=== PATIENT | female | born 1990 | race American Indian/Alaskan Native ===

== ENCOUNTER 2016-05-28 06:57 | Inpatient (IN) | payer BC ==
[2016-05-28 07:54] LABS: Basophils % (Auto) 0.3 % (0.0-1.8); Eosinophils % (Auto) 0.1 % (0.0-4.3); Hematocrit 35.3 % (30.3-42.9); Hemoglobin 11.1 gm/dl (10.1-14.3); Mean Corpuscular HGB Conc 32 % (30-34); Mean Corpuscular Volume 75 fl (79-97); Platelet Count 347 K/mm3 (140-440); Red Cell Distribution Width 18.7 % (13.2-15.2); White Blood Count 7.5 K/mm3 (4.5-11.0)
[2016-05-28 07:57] LABS: Mean Corpuscular Hemoglobin 24 pg (28-32)
[2016-05-28 08:05] LABS: Bacteria,Urine 1+ /HPF (Negative); Bilirubin,Urine NEG (Negative); Blood,Urine NEG (Negative); Ketones,Urine 80 mg/dL (Negative); Leukocyte Esterase,Urine MOD (Negative); Mucus,Urine 3+ /HPF; Nitrite,Urine NEG (Negative)
[2016-05-28 08:13] LABS: Alanine Aminotransferase 168 units/L (7-56); Albumin 4.4 g/dL (3.9-5); Albumin/Globulin Ratio 1.1 %; Alkaline Phosphatase 77 units/L (35-129); Anion Gap 20 mmol/L; Bilirubin,Total 1.1 mg/dL (0.1-1.2); Blood Urea Nitrogen 4 mg/dL (7-17); Calcium 9.5 mg/dL (8.4-10.2); Carbon Dioxide 27 mmol/L (22-30); Chloride 91.3 mmol/L (98-107); Glucose 95 mg/dL (65-100); Lipase 69 units/L (13-60); Sodium 135 mmol/L (137-145); Total Protein 8.3 g/dL (6.3-8.2)
[2016-05-28] MEDS ORDERED: NACL 0.9% 1000 ML 1,000 ML IV ONE ×2 (11:47)
[2016-05-28] MEDS ORDERED: ZOFRAN IV ONE ×2 (11:47→15:16)
[2016-05-28] MEDS ORDERED: ROCEPHIN/NS 1 GM/50 ML 1 GM/50 ML BAG IV ONE (11:48)
--- NOTE | 2016-05-28 12:01 | Emergency Department Report ---
HPI - General Chief Complaint: Abdominal Pain Time Seen by Provider: 05/28/16 11:39 - HPI HPI: Room 4 The patient is a 25-year-old female presenting with a chief complaint of nausea vomiting abdominal pain. The patient is approximately 9 weeks states for 2-3 weeks his left lower quadrant abdominal pain nausea and vomiting. The patient states she feels "dehydrated." The patient states she has been unable to keep anything down despite being given Zofran by her PUBLIC SPEAKING COACH 1 week ago. Patient also complains of pain in the left back approximately 2-3 weeks. The patient denies dysuria or hematuria. States her urine has been dark Location: [see above] Duration: 2-3 weeks Quality: Nausea Severity: Moderate Modifying factors: [see above] Context: [see above] Mode of transportation: [not driving] ED Past Medical Hx - Past Medical History Previous Medical History?: No - Surgical History Past Surgical History?: No - Family History Family history: no significant - Social History Smoking Status: Never Smoker Substance Use Type: None - Medications Home Medications: Home Medications Medication Instructions Recorded Confirmed Last Taken Type Nitrofurantoin [place]/M-Cryst 100 mg PO Q12HR #20 capsule 05/28/16 Unknown Rx [Macrobid CAP] Ondansetron [Zofran ODT TAB] 8 mg PO Q8HR #20 tab.rapdis 05/28/16 Unknown Rx ED Review of Systems ROS: Stated complaint: NAUSEA/DEHYDRATED Other details as noted in HPI Comment: All other systems reviewed and negative Physical Exam - Physical Exam Vital Signs: Vital Signs 05/28/16 07:21 Temperature 98.3 F Pulse Rate 88 Respiratory 16 Rate Blood Pressure 113/69 O2 Sat by Pulse 99 Oximetry ED Course Vital Signs 05/28/16 07:21 Temperature 98.3 F Pulse Rate 88 Respiratory 16 Rate Blood Pressure 113/69 O2 Sat by Pulse 99 Oximetry - Consultations Consultation #1: 05/28/16 12:02 Patient's PUBLIC SPEAKING COACH paged- case discussed with Dr. Gena Chavez. States this does not represent HELLP syndrome as the patient is less than 20 weeks. Recommends consulting GI 05/28/16 12:06 Consultation #2: 05/28/16 13:41 Duck Farmer paged- case discussed with Dr. Jr Chavez. No intervention necessary at this time. May have patient follow-up in the office 05/28/16 13:57 ED Medical Decision Making - Lab Data Result diagrams: 05/28/16 07:37 05/28/16 07:37 Laboratory Tests 05/28/16 05/28/16 05/28/16 07:37 07:37 07:37 WBC 7.5 RBC 4.70 Hgb 11.1 Hct 35.3 MCV 75 L MCH 24 L MCHC 32 RDW 18.7 H Plt Count 347 Lymph % (Auto) 15.5 [place] % (Auto) 8.3 H Eos % (Auto) 0.1 Baso % (Auto) 0.3 Lymph # 1.2 [place] # 0.6 Eos # 0.0 Baso # 0.0 Seg Neutrophils % 75.8 H Seg Neutrophils # 5.7 Sodium Potassium Chloride Carbon Dioxide Anion Gap BUN Creatinine Estimated GFR BUN/Creatinine Ratio Glucose Calcium Total Bilirubin AST ALT Alkaline Phosphatase Total Protein Albumin Albumin/Globulin Ratio Lipase HCG, Qual Positive Urine Color Ira Urine Turbidity Cloudy Urine pH 5.0 Ur Specific [place] 1.028 Urine Protein 100 mg/dl Urine Glucose (UA) Neg Urine Ketones 80 Urine Blood Neg Urine Nitrite Neg Urine Bilirubin Neg Urine Urobilinogen 4.0 Ur Leukocyte Esterase Mod Urine WBC (Auto) 56.0 H Urine RBC (Auto) 13.0 U Epithel Cells (Auto) 33.0 H Urine Bacteria (Auto) 1+ Ur Transition Epith Cell 1 Urine Mucus 3+ 05/28/16 07:37 WBC RBC Hgb Hct MCV MCH MCHC RDW Plt Count Lymph % (Auto) [place] % (Auto) Eos % (Auto) Baso % (Auto) Lymph # [place] # Eos # Baso # Seg Neutrophils % Seg Neutrophils # Sodium 135 L Potassium 3.0 L Chloride 91.3 L Carbon Dioxide 27 Anion Gap 20 BUN 4 L Creatinine 0.8 Estimated GFR > 60 BUN/Creatinine Ratio 5.00 Glucose 95 Calcium 9.5 Total Bilirubin 1.1 AST 73 H ALT 168 H Alkaline Phosphatase 77 Total Protein 8.3 H Albumin 4.4 Albumin/Globulin Ratio 1.1 Lipase 69 H HCG, Qual Urine Color Urine Turbidity Urine pH Ur Specific [place] Urine Protein Urine Glucose (UA) Urine Ketones Urine Blood Urine Nitrite Urine Bilirubin Urine Urobilinogen Ur Leukocyte Esterase Urine WBC (Auto) Urine RBC (Auto) U Epithel Cells (Auto) Urine Bacteria (Auto) Ur Transition Epith Cell Urine Mucus - Radiology Data Radiology results: report reviewed (pelvic ultrasound, right upper quadrant ultrasound), image reviewed (pelvic ultrasound, right upper quadrant ultrasound) Pelvic ultrasound (read by radiologist)-single viable intrauterine gestation. Complex cyst in the right and left ovary. Right upper quadrant ultrasound (read by radiologist)-sludge with single calculus noted within the gallbladder. Common bile duct diameter 3.5 mm. Gallbladder wall thickness 2.7 mm. Normal liver. - Differential Diagnosis HELLP syndrome, symptomatic cholelithiasis, hyperemesis gravidarum Critical care attestation.: If time is entered above; I have spent that time in minutes in the direct care of this critically ill patient, excluding procedure time. ED Disposition Clinical Impression: Hyperemesis gravidarum, UTI (urinary tract infection), Elevated LFTs, Cholelithiasis Disposition: DISCHARGED TO HOME OR SELFCARE Is pt being admited?: No Does the pt Need Aspirin: No Condition: Stable Instructions: Abdominal Pain (ED) Additional Instructions: Return to the emergency department immediately should you develop worsening symptoms, fever, inability to tolerate food or liquid or any other concerns. Prescriptions: Nitrofurantoin [place]/M-Cryst [Macrobid CAP] 100 mg PO Q12HR #20 capsule Ondansetron [Zofran ODT TAB] 8 mg PO Q8HR #20 tab.rapdis Referrals: MONICA SCHMITT MD [Staff Physician] - 3-[address] Gena Chavez, your PUBLIC SPEAKING COACH [Other] - 3-5 Days Time of Disposition: 15:23
--- NOTE | 2016-05-28 13:16 | Ultrasound Report ---
Pelvic and transvaginal sonography: History: Lower abdominal pain. Findings: Uterus measures 10.1 x 7 x 7.2 cm. Single intrauterine gestation is noted. CRL of the fetus is 17.5 mm corresponding to 8 weeks and 2 days of gestation. heart rate 160 per minute. Right ovary 3.2 x 2.2 x 2.4 cm. Complex cyst in the right ovary measures 1.1 cm. Left ovary 3.5 x 2.2 x 2.8 cm. Complex cyst in the left ovary measures 1 cm. Impression: Single viable intrauterine gestation. Complex cyst in the right and left ovary.
--- NOTE | 2016-05-28 13:19 | Ultrasound Report ---
Sonogram right upper quadrant: History: Nausea and vomiting. Findings: Aortic diameter 1.2 cm. Normal liver. No intrahepatic or extrahepatic duct dilatation. Common bile duct diameter 3.5 mm. Gallbladder wall thickness 2.7 mm. Sludge is noted within the gallbladder with single calculus measuring 1 cm in diameter. Right kidney 8.8 x 4.3 x 5 cm. Cortical thickness 1.0 cm. Normal pancreas. Impression: Sludge with single calculus noted within the gallbladder.
[2016-05-28] MEDS ORDERED: K-DUR PO ONE (13:43)
--- NOTE | 2016-05-28 13:51 | Admit Criteria Form ---
Admission Criteria Documentation: HYPEREMESIS GRAVIDARUM Clinical Indications for Admission to Inpatient Care ( Place 'X' for any and all applicable criteria): Admission is indicated for ANY ONE of the following (1)(2)(3) [ ]I. Suspected serious gastrointestinal pathology (eg, acute fatty liver of , pancreatitis) as indicated by ANY ONE of the following (5)(6): [ ]a) Significantly elevated serum transaminase or bilirubin (eg, 2 or 3 times normal) [ ]b) Elevated serum amylase or lipase [ ]c) Elevated serum ammonia level [ ]d) Coagulopathy (eg, elevated PT, PTT) [ ]e) Ascites [ ]f) Encephalopathy [X ]II. Inpatient admission required rather than observation care (Also use Hyperemesis Gravidarum: Observation Care as appropriate) because of ANY ONE of the following (7) : [ ]a) Hemodynamic instability develops [X ]b) Vomiting that is severe or persistent [ ]c) Severe electrolyte abnormalities requiring inpatient care [ ]d) Metabolic disorder (eg, acidosis) that is severe or persistent [ ]e) Acute renal failure [ ]f) Altered mental status or medication side effects (eg, antiemetics) that are severe or persistent [ ]g) compromise identified [ ]h) Hydatidiform mole identified [ ]i) IV fluid to replace significant ongoing (eg, for over 24 hrs) losses (> 3 L/m2 per day) [ ]j) Parenteral nutrition regimen that must be implemented on inpatient basis [ ]k) Other condition, treatment or monitoring requiring inpatient admission Extended stay beyond goal length of stay may be needed for(2)(13): [ ]a) Severe electrolyte disorder that persists [ ]b) Severe malnutrition [ ]c) Acute fatty liver of [ ]d) Hydatidiform mole [ ]e) Wernicke encephalopathy or other [employer] complication (eg, osmotic demyelination syndrome) [ ]f) compromise The original [employer] content created by [employer] has been revised. The portions of the content which have been revised are identified through the use of italic text or in bold, and [facility] has neither reviewed nor approved the modified material. All other unmodified content is copyright [facility]. Please see references footnoted in the original [facility] edition 2016 Admission Criteria Met: Yes
[2016-05-28] MEDS ORDERED: PHENERGAN PR ONE (16:00)
[2016-05-28] MEDS ORDERED: REGLAN IV ONE (17:53)
[2016-05-28] MEDS ORDERED: REGLAN ONE (19:28)
[2016-05-28] MEDS: D5LR 1,000 ML IV SCH (21:59)
[2016-05-28] MEDS: PHENERGAN PR SCH (23:31)
[2016-05-29] MEDS: REGLAN IV SCH ×4 (02:40→22:30)
[2016-05-29] MEDS: PHENERGAN PR SCH ×4 (05:42→21:00)
[2016-05-29] MEDS: D5LR 1,000 ML IV SCH ×2 (05:42→12:16)
--- NOTE | 2016-05-29 13:17 | History and Physical Report ---
History of Present Illness Date of examination: 05/29/16 Date of admission: 05/28/16 17:54 Chief complaint: Nausea and vomiting History of present illness: This is a 25 yo at 8+ weeks was seen in clinic several weeks ago for NOB visit. She reports labs and US performed and stated that she was given ranitidine and zofran for nausea and vomiting. She reports vomiting since Apr 6x per day and losing 16 pounds. She has no medical history but vaguely remembers thyroid condition ( hyperthyroidism) that has not been treated in the past. She has no other sx. denies s any cramping, wasserman, reports some spotting at last appt with FROY Khanna. Denies any bleeding nor spotting today. Past History Past Medical History: thyroid disease (questionable ) Past Surgical History: no surgical history Family/Genetic History: diabetes, heart disease, hypertension, stroke Social history: no significant social history, single. denies: smoking, alcohol abuse, prescription drug abuse Medications and Allergies Allergies Allergy/AdvReac Type Severity Reaction Status Date / Time No Known Allergies Allergy Unverified 05/28/16 07:20 Home Medications Medication Instructions Recorded Confirmed Last Taken Type Nitrofurantoin [place]/M-Cryst 100 mg PO Q12HR #20 capsule 05/28/16 Unknown Rx [Macrobid CAP] Ondansetron [Zofran ODT TAB] 8 mg PO Q8HR #20 tab.rapdis 05/28/16 Unknown Rx Active Meds: Active Medications Dextrose/Lactated Ringer's (D5lr) 1,000 mls @ 150 mls/hr IV DIRECT JESSICA Last Admin: 05/29/16 12:16 Dose: 150 mls/hr Metoclopramide HCl (Reglan) 10 mg IV Q6H JSESICA Last Admin: 05/29/16 08:15 Dose: 10 mg Multivitamins/Iron/Calcium ( Vitamin) 1 each PO QDAY JESSICA Ondansetron HCl (Zofran) 4 mg IV Q6H PRN PRN Reason: N/V unrelieved by Reglan Promethazine HCl (Phenergan) 25 mg WA Q6H JESSICA Last Admin: 05/29/16 12:15 Dose: 25 mg Review of Systems Constitutional: weight loss (16 pounds) Eyes: deferred Ears, nose, mouth and throat: deferred Breasts: deferred Gastrointestinal: nausea, vomiting, no abdominal pain, no diarrhea, no constipation Genitourinary: deferred Rectal Exam: deferred Integumentary: deferred - Vital Signs Vital signs: Vital Signs Temp Pulse Resp BP Pulse Ox 98.3 F 88 16 113/69 99 05/28/16 07:21 05/28/16 07:21 05/28/16 07:21 05/28/16 07:21 05/28/16 07:21 Temp Pulse Resp BP Pulse Ox 98.5 F 70 18 84/50 100 05/29/16 12:05 05/29/16 12:05 05/29/16 12:05 05/29/16 12:05 05/28/16 20:00 - Physical Exam Breasts: Positive: normal Cardiovascular: Regular rate, Normal S1, Normal S2 Lungs: Positive: Clear to auscultation, Normal air movement Abdomen: Positive: normal appearance, soft, normal bowel sounds. Negative: distention, tenderness Genitourinary (Female): Positive: normal external genitalia, normal perenium Vulva: both: normal Vagina: Positive: normal moisture Uterus: Positive: enlarged Anus/Rectum: Positive: normal perianal skin, heme negative Extremities: Positive: normal Deep Tendon Reflex Grade: Normal +2 Results Result Diagrams: 05/28/16 07:37 05/28/16 07:37 All other labs normal. Assessment and Plan A/P HD#1 IUP 8 weeks hyperememsis gravidarum elevated liver enzymes cholelethiasis hyperkalemia increase hydration antiemetics ( scopolamine, reglan, zofran and solumedrol) replace K in D5 LR with 30 K hepatiits profile labs TSh profile GI consult discussed case and discussed elevated liver enzymes may be due to sludge or passing stone will see patietn tomorrow. recommneded hydration repeat cmp tonight and tomorrow
[2016-05-29] MEDS: ZOFRAN IV PRN (13:39)
[2016-05-29] MEDS ORDERED: D5W/0.45% NACL/KCL 20 MEQ 20 MEQ/1,000 ML BAG IV SCH (14:00)
[2016-05-29 16:11] LABS: Alanine Aminotransferase 90 units/L (7-56); Albumin 3.3 g/dL (3.9-5); Albumin/Globulin Ratio 1.4 %; Alkaline Phosphatase 51 units/L (35-129); Anion Gap 15 mmol/L; Bilirubin,Total 0.4 mg/dL (0.1-1.2); Blood Urea Nitrogen 2 mg/dL (7-17); Carbon Dioxide 24 mmol/L (22-30); Chloride 103.2 mmol/L (98-107); Glucose 114 mg/dL (65-100); Sodium 139 mmol/L (137-145); Total Protein 5.6 g/dL (6.3-8.2)
[2016-05-29 16:16] LABS: Potassium 2.9 mmol/L (3.6-5.0)
[2016-05-29] MEDS ORDERED: KCL 20MEQ/100ML 100 ML IV ONE (16:28)
[2016-05-29] MEDS: TRANSDERM-SCOP TD SCH (17:28)
[2016-05-29] MEDS ORDERED: KCL 10MEQ/100ML 10 MEQ/100 ML BAG IV SCH (18:00)
[2016-05-30] MEDS: PHENERGAN PR SCH ×3 (03:00→21:49)
[2016-05-30] MEDS: D5LR 1,000 ML IV SCH ×3 (03:30→18:14)
[2016-05-30] MEDS: REGLAN IV SCH ×4 (03:30→21:49)
--- NOTE | 2016-05-30 05:18 | Progress Note ---
Assessment and Plan O: IUP at 9 weeks hyperememsis gravidarum elevated liver enzymes cholelethiasis hypokalemia P: milly't Subjective - Subjective Date of service: 05/30/16 Patient reports: new complaints, other (n/v continues, unable to tolerate anything by mouth) Objective - Vital Signs Vital Signs: Vital Signs - 12hr 05/29/16 05/29/16 05/30/16 20:50 23:40 03:50 Temperature 99.3 F 98.9 F 98.7 F Pulse Rate [ 74 64 79 Right Radial] Respiratory 18 18 18 Rate Blood Pressure 100/56 86/50 111/67 [Right Arm] - Exam Breasts: deferred Abdomen: Present: normal appearance - Labs Labs: Abnormal Labs 05/29/16 05/29/16 13:38 13:39 Potassium 2.9 L* BUN 2 L Creatinine 0.5 L Glucose 114 H Calcium 8.0 L D ALT 90 H Total Protein 5.6 L D Albumin 3.3 L TSH 0.047 L Free T4 1.63 H Laboratory Results - last 24 hr 05/29/16 05/29/16 05/29/16 13:38 13:39 Unknown Sodium 139 Potassium 2.9 L* Chloride 103.2 Carbon Dioxide 24 Anion Gap 15 BUN 2 L Creatinine 0.5 L Estimated GFR > 60 BUN/Creatinine Ratio 4.00 Glucose 114 H Calcium 8.0 L D Total Bilirubin 0.4 AST 31 ALT 90 H Alkaline Phosphatase 51 Total Protein 5.6 L D Albumin 3.3 L Albumin/Globulin Ratio 1.4 TSH 0.047 L Free T4 1.63 H Urine Ketones Tr Hepatitis A IgM Ab Non-reactive Hep Bs Antigen Non-reactive Hep B Core IgM Ab Non-reactive Hepatitis C Antibody Non-reactive
--- NOTE | 2016-05-30 17:42 | Consultation ---
History of Present Illness - Reason for Consult Consult date: 05/30/16 N/V Requesting physician: MELY CHAVEZ - History of Present Illness See Dictation Past History Social history: no significant social history, single. denies: smoking, alcohol abuse, prescription drug abuse Medications and Allergies Allergies Allergy/AdvReac Type Severity Reaction Status Date / Time No Known Allergies Allergy Unverified 05/28/16 07:20 Home Medications Medication Instructions Recorded Confirmed Last Taken Type Nitrofurantoin [place]/M-Cryst 100 mg PO Q12HR #20 capsule 05/28/16 Unknown Rx [Macrobid CAP] Ondansetron [Zofran ODT TAB] 8 mg PO Q8HR #20 tab.rapdis 05/28/16 Unknown Rx Active Meds: Active Medications Dextrose/Lactated Ringer's (D5lr) 1,000 mls @ 150 mls/hr IV DIRECT JESSICA Last Admin: 05/30/16 10:18 Dose: 150 mls/hr Methylprednisolone Sodium Succinate (Solu-Medrol) 100 mg IV Q8H JESSICA Stop: 05/30/16 18:01 Last Admin: 05/30/16 11:57 Dose: 100 mg Metoclopramide HCl (Reglan) 10 mg IV Q6H JESSICA Last Admin: 05/30/16 16:25 Dose: 10 mg Multivitamins/Iron/Calcium ( Vitamin) 1 each PO QDAY JESSICA Ondansetron HCl (Zofran) 4 mg IV Q6H PRN PRN Reason: N/V unrelieved by Reglan Last Admin: 05/29/16 13:39 Dose: 4 mg Promethazine HCl (Phenergan) 25 mg SC Q6H JESSICA Last Admin: 05/30/16 10:01 Dose: Not Given Scopolamine (Transderm-Scop) 1 each TD Q3D JESSICA Last Admin: 05/29/16 17:28 Dose: 1 each Exam - Constitutional Vitals: Temp Pulse Resp BP Pulse Ox 98.8 F 70 18 100/54 100 05/30/16 16:38 05/30/16 16:38 05/30/16 16:38 05/30/16 16:38 05/28/16 20:00 Results - Labs CBC & Chem 7: 05/28/16 07:37 05/30/16 07:45 Assessment and Plan 1. N/V - with RUQ tenderness, and elevated LFTs that are improving, in pt in 9th wk of . Most c/w symptomatic cholelithiasis, and possible stone passage in CBD. - discussed with pt and Dr. Chavez - PICC line and cyclic TPN - MRCP in 2nd trimester, and then CCX +/- ERCP - if worsens, may need to act sooner.
[2016-05-30] MEDS ORDERED: INFUVITE 10 ML in D5LR 1,000 ML IV ONE (19:00)
[2016-05-30] MEDS: ZOFRAN IV PRN (19:39)
[2016-05-31 00:39] LABS: Alanine Aminotransferase 88 units/L (7-56); Albumin 3.3 g/dL (3.9-5); Albumin/Globulin Ratio 1.2 %; Alkaline Phosphatase 53 units/L (35-129); Anion Gap 17 mmol/L; Bilirubin,Total 0.5 mg/dL (0.1-1.2); Blood Urea Nitrogen < 1 mg/dL (7-17); Calcium 8.6 mg/dL (8.4-10.2); Carbon Dioxide 22 mmol/L (22-30); Chloride 100.3 mmol/L (98-107); Glucose 179 mg/dL (65-100); Potassium 3.4 mmol/L (3.6-5.0); Sodium 136 mmol/L (137-145); Total Protein 6.1 g/dL (6.3-8.2)
[2016-05-31] MEDS: ZOFRAN IV PRN (01:08)
--- NOTE | 2016-05-31 01:47 | Consultation ---
REASON FOR CONSULTATION: Nausea, vomiting, and abnormal liver enzymes. 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 She has been having problems with intermittent nausea and vomiting since early April and has lost 16 pounds as a result. She notes that her nausea is chronic, but it is worse with p.o. intake. She has mild abdominal discomfort at times, though is in her lower abdomen. She denies GERD symptoms and there has been no hematemesis, hematochezia, or diarrhea. There have been no fevers, chills, or sweats. The patient denies jaundice. She has no known history of liver disease and denies ethanol usage. During the patient's first , she did have nausea, but no vomiting. She was never hospitalized for this. ALLERGIES: She has no known drug allergies. MEDICATIONS: At home, she only takes Zofran and Macrobid. PAST MEDICAL AND SURGICAL HISTORY: She has no significant past medical or surgical history. FAMILY AND SOCIAL HISTORY: Noncontributory and she does not smoke or drink. REVIEW OF SYSTEMS: Noncontributory except as noted above. PHYSICAL EXAMINATION: GENERAL: This is a pleasant young black female lying in bed in no apparent distress. VITAL SIGNS: Temperature is 98.8, pulse 70, blood pressure 100/54. HEENT: She is anicteric with pupils that are round and reactive. Oropharynx is clear. LUNGS: Clear bilaterally to auscultation. CARDIOVASCULAR: Regular with no extra heart sounds. ABDOMEN: Soft with good bowel sounds and no organomegaly. She has mild tenderness especially in the right upper quadrant. RECTAL: Deferred. EXTREMITIES: Reveal no edema. NEUROLOGIC: She is alert, oriented x 3. Grossly nonfocal. LABORATORY DATA: White count is 7.5, hemoglobin 11.1, hematocrit 35.3, MCV of 75, platelet count of 347,000. Sodium 139, potassium is up to 3.6, chloride 103, bicarbonate 24, BUN 2, creatinine 0.5, glucose of 114. On admission, her AST was 72 with ALT of 168, alkaline phosphatase 77, and a total bilirubin of 1.11. One day later on 05/29/2016, the AST was 31, ALT 90, alkaline phosphatase 51, total bilirubin of 0.4, and her albumin is 3.3. Her TSH is low at 0.047 with a free T4 of 1.63. Her hepatitis serologies are negative for acute hepatitis. Gallbladder ultrasound was reported as showing stones in the gallbladder and sludge with a normal sized common bile duct of 3 mm. IMPRESSION: Nausea/vomiting -- associated with elevated liver enzymes that have improved. Findings are worrisome for symptomatic cholelithiasis. Elevated liver enzymes may represent passage of sludge or stones down the bile duct, but there is no dilation. However, other possibilities are certainly to be considered including liver diseases associated with , which I do not think is the case. The nausea and vomiting are not what I would expect with hyperemesis gravidarum, given that her first was relatively uneventful. An ERCP or cholecystectomy would not be appropriate in the first trimester. We could do an MRCP but unless we were going to do anything useful with that information during this trimester, I would wait until the next trimester when it would be safer to proceed with surgery for gallbladder or an ERCP. The situation was discussed with the patient and her boyfriend as well as with Dr. Gena Chavez. RECOMMENDATIONS: 1. Monitor liver enzymes. 2. PICC line and cyclic TPN for nutritional support through the first trimester. 3. In the second trimester, when appropriate, proceed with MRCP or with a laparoscopic cholecystectomy and intraoperative cholangiogram. 4. If the patient worsens in the interim, appropriate management based on clinical course. [facility]# [id number] HRC/NTS
[2016-05-31] MEDS: PHENERGAN PR SCH ×3 (04:09→21:00)
[2016-05-31] MEDS: REGLAN IV SCH ×3 (04:09→20:48)
[2016-05-31] MEDS: D5LR 1,000 ML IV SCH ×2 (06:20→12:27)
--- NOTE | 2016-05-31 08:23 | Progress Note ---
Assessment and Plan A: IUP at 8 wks Persistent nausea/vomiting with evidence of symptomatic cholelithiasis No solid oral intake in more than one month P: Consult for PICC line and TPN. Case management consult for outpatient TPN, IV antiemetics. Subjective - Subjective Date of service: 05/31/16 Principal diagnosis: Nausea/Vomiting, Symptomatic Cholilthiasis, IUP at 8 wks Interval history: Pt with no nausea or vomiting since 8 pm but also with nothing by mouth since that time. Pt has been offered Phenergan suppositories but she felt her abdominal pain and nausea were worse with that medication. No vaginal bleeding or other obstetric complaints. GI consult completed yesterday. Patient reports: other (n/v continues, unable to tolerate anything other than water and tea ), no new complaints, no vaginal bleeding Objective - Vital Signs Vital Signs: Vital Signs - 12hr 05/30/16 05/31/16 23:15 04:15 Temperature 98.6 F 98.5 F Pulse Rate [ 53 L 71 Right Radial] Respiratory 20 18 Rate Blood Pressure 98/53 107/57 [Right Arm] - Exam Breasts: deferred Cardiovascular: Regular rate Lungs: Clear to auscultation Abdomen: Present: soft, tenderness (RUQ ), abnormal bowel sounds (hypoactive ) Extremities: normal - Labs Labs: Abnormal Labs 05/29/16 05/29/16 05/31/16 13:38 13:39 00:18 Sodium 136 L Potassium 2.9 L* 3.4 L BUN 2 L < 1 L Creatinine 0.5 L 0.4 L Glucose 114 H 179 H Calcium 8.0 L D ALT 90 H 88 H Total Protein 5.6 L D 6.1 L Albumin 3.3 L 3.3 L TSH 0.047 L Free T4 1.63 H Laboratory Results - last 24 hr 05/30/16 05/31/16 07:45 00:18 Sodium 136 L Potassium 3.6 D 3.4 L Chloride 100.3 Carbon Dioxide 22 Anion Gap 17 BUN < 1 L Creatinine 0.4 L Estimated GFR > 60 BUN/Creatinine Ratio 2.50 Glucose 179 H Calcium 8.6 Total Bilirubin 0.5 AST 38 ALT 88 H Alkaline Phosphatase 53 Total Protein 6.1 L Albumin 3.3 L Albumin/Globulin Ratio 1.2 - Results US- obstetric: report reviewed
[2016-05-31 10:31] LABS: Phosphorous 2.2 mg/dL (2.5-4.5)
--- NOTE | 2016-05-31 14:36 | XRay Report ---
AP CHEST: HISTORY: chest pain AP view of the chest demonstrates a normal mediastinal and cardiac contour with clear lungs and normal bony and soft tissue structures. A right arm PICC line terminates in the distal SVC. IMPRESSION: Unremarkable AP chest.
--- NOTE | 2016-05-31 14:45 | Gastroenterology Progress Note ---
Assessment and Plan 25yo woman 8 wks gestation with likely symptomatic cholelithiasis. Rec: 1) Agree w/ initiation of home TPN 2) Would not pursue cholecystectomy or MRCP at this time 3) Can reconsider in 2nd trimester No further inpatient GI w/u planned. Please re-call with questions. Thank you! Subjective Date of service: 05/31/16 Principal diagnosis: Nausea/Vomiting, Symptomatic Cholilthiasis, IUP at 8 wks Interval history: Pt seen/examined. States that she is feeling a little better today. S/P PICC placement for home TPN. Objective - Constitutional Vitals: Temp Pulse Resp BP Pulse Ox 98.4 F 47 L 20 98/53 100 05/31/16 07:35 05/31/16 07:35 05/31/16 07:35 05/31/16 07:35 05/28/16 20:00 General appearance: no acute distress - Neck Neck: supple - Respiratory Respiratory: bilateral: CTA - Cardiovascular Rhythm: regular Heart Sounds: Present: S1 & S2 - Extremities Extremities: No edema - Gastrointestinal General gastrointestinal: Present: soft, tender (in RUQ), non-distended, normal bowel sounds - Integumentary Integumentary: Present: clear - Neurologic Neurological: alert and oriented x3 - Psychiatric Psychiatric: appropriate mood/affect - Labs CBC & Chem 7: 05/28/16 07:37 05/31/16 00:18 Labs: Laboratory Results - last 24 hr 05/31/16 05/31/16 00:18 09:50 Sodium 136 L Potassium 3.4 L Chloride 100.3 Carbon Dioxide 22 Anion Gap 17 BUN < 1 L Creatinine 0.4 L Estimated GFR > 60 BUN/Creatinine Ratio 2.50 Glucose 179 H Calcium 8.6 Phosphorus 2.2 L Magnesium 2.0 Total Bilirubin 0.5 AST 38 ALT 88 H Alkaline Phosphatase 53 Total Protein 6.1 L Albumin 3.3 L Albumin/Globulin Ratio 1.2
[2016-05-31] MEDS ORDERED: TPN ADULT 2,016 ML IV SCH (20:00)
[2016-06-01] MEDS: PHENERGAN PR SCH ×3 (03:00→16:00)
[2016-06-01] MEDS: REGLAN IV SCH ×3 (05:36→16:50)
[2016-06-01 08:37] LABS: Anion Gap 14 mmol/L; Blood Urea Nitrogen 5 mg/dL (7-17); Calcium 8.2 mg/dL (8.4-10.2); Carbon Dioxide 25 mmol/L (22-30); Chloride 100.4 mmol/L (98-107); Glucose 89 mg/dL (65-100); Magnesium 1.8 mg/dL (1.7-2.3); Phosphorous 3.4 mg/dL (2.5-4.5); Potassium 3.3 mmol/L (3.6-5.0); Sodium 136 mmol/L (137-145)
--- NOTE | 2016-06-01 08:45 | Progress Note ---
Assessment and Plan - Patient Problems (1) Cholelithiasis Current Visit: Yes Status: Acute Qualifiers: Cholelithiasis location: C Cholecystitis presence: C Cholangitis presence : C Cholecystitis acuity: C Cholangitis acuity: C Biliary obstruction: B (2) Hyperemesis gravidarum Current Visit: Yes Status: Acute Plan to address problem: Patient demonstrating clinical improvement Will arrange for her TPN on outpatient basis Subjective - Subjective Date of service: 06/01/16 Principal diagnosis: Nausea/Vomiting, Symptomatic Cholilthiasis, IUP at 8 wks Interval history: The patient reports significant improvement. She denies any emesis yesterday or today. She is currently receiving TPN. Patient reports: no new complaints, no vaginal bleeding Objective - Vital Signs Vital Signs: Vital Signs - 12hr 06/01/16 00:00 Temperature 98.6 F Pulse Rate [ 62 Right Radial] Respiratory 18 Rate Blood Pressure 98/56 [Right Arm] - Exam Abdomen: Present: normal appearance, soft - Labs Labs: Abnormal Labs 05/29/16 05/29/16 05/31/16 13:38 13:39 00:18 Sodium 136 L Potassium 2.9 L* 3.4 L BUN 2 L < 1 L Creatinine 0.5 L 0.4 L Glucose 114 H 179 H Calcium 8.0 L D Phosphorus ALT 90 H 88 H Total Protein 5.6 L D 6.1 L Albumin 3.3 L 3.3 L TSH 0.047 L Free T4 1.63 H 05/31/16 06/01/16 09:50 07:59 Sodium 136 L Potassium 3.3 L BUN 5 L Creatinine 0.4 L Glucose Calcium 8.2 L Phosphorus 2.2 L ALT Total Protein Albumin TSH Free T4 Laboratory Results - last 24 hr 05/31/16 06/01/16 06/01/16 09:50 05:39 07:59 Sodium 136 L Potassium 3.3 L Chloride 100.4 Carbon Dioxide 25 Anion Gap 14 BUN 5 L Creatinine 0.4 L Estimated GFR > 60 BUN/Creatinine Ratio 12.50 Glucose 89 POC Glucose 89 Calcium 8.2 L Phosphorus 2.2 L Magnesium 2.0 1.8
[2016-06-01] MEDS: PRENATAL VITAMIN PO SCH (10:00)
[2016-06-01] MEDS: TRANSDERM-SCOP TD SCH (16:50)
[2016-06-01] MEDS: INTRALIPID 20% 250 ML IV SCH ×2 (19:57→20:08)
[2016-06-01] MEDS ORDERED: TPN ADULT 2,016 ML IV SCH (20:00)
[2016-06-02] MEDS: REGLAN IV SCH ×4 (03:42→16:30)
[2016-06-02] MEDS: PHENERGAN PR SCH ×3 (03:42→16:00)
[2016-06-02 07:44] LABS: Anion Gap 14 mmol/L; Blood Urea Nitrogen 6 mg/dL (7-17); Calcium 8.1 mg/dL (8.4-10.2); Carbon Dioxide 24 mmol/L (22-30); Chloride 101.6 mmol/L (98-107); Glucose 81 mg/dL (65-100); Magnesium 1.9 mg/dL (1.7-2.3); Phosphorous 3.1 mg/dL (2.5-4.5); Potassium 3.7 mmol/L (3.6-5.0); Sodium 136 mmol/L (137-145)
--- NOTE | 2016-06-02 08:36 | Progress Note ---
Assessment and Plan HD#5 n/v cholethiasis. 1. advance to bland diet 2. contact case mgt to assist in arrangement of picu service and tpn at home 3. coordinate f/u with GI 4. advance diet today 5. may be candidate for discharge today if all above performed 6. patient wants to go home Subjective - Subjective Date of service: 06/02/16 Principal diagnosis: Nausea/Vomiting, Symptomatic Cholilthiasis, IUP at 8 wks Interval history: This is a 25 yo at 8+ weeks was seen in clinic several weeks ago for NOB visit. She reports labs and US performed and stated that she was given ranitidine and zofran for nausea and vomiting. She reports vomiting since Apr 6x per day and losing 16 pounds. She has no medical history but vaguely remembers thyroid condition ( hyperthyroidism) that has not been treated in the past. She has no other sx. denies s any cramping, wasserman, reports some spotting at last appt with FROY Khanna. Denies any bleeding nor spotting today. Today HD#5 tolerating diet clear will advance to bland. Patient reports no vomiting yesterday. was able to sneak and tolerate a lunchable. Ketones neg Patient reports: no new complaints, no vaginal bleeding Objective - Vital Signs Vital Signs: Vital Signs - 12hr 06/01/16 06/02/16 23:00 04:20 Temperature 98.4 F 98.6 F Pulse Rate [ 76 62 Left Radial] Respiratory 20 18 Rate Blood Pressure 102/60 106/53 [Left Arm] - Exam Breasts: normal Cardiovascular: Regular rate, Normal S1, Normal S2 Lungs: Clear to auscultation, Normal air movement Abdomen: Present: normal appearance, soft, normal bowel sounds Vulva: both: normal Uterus: Present: normal FHR: auscultation normal - Labs Labs: Abnormal Labs 05/29/16 05/29/16 05/31/16 13:38 13:39 00:18 Sodium 136 L Potassium 2.9 L* 3.4 L BUN 2 L < 1 L Creatinine 0.5 L 0.4 L Glucose 114 H 179 H Calcium 8.0 L D Phosphorus ALT 90 H 88 H Total Protein 5.6 L D 6.1 L Albumin 3.3 L 3.3 L TSH 0.047 L Free T4 1.63 H 05/31/16 06/01/16 06/02/16 09:50 07:59 07:10 Sodium 136 L 136 L Potassium 3.3 L BUN 5 L 6 L Creatinine 0.4 L 0.4 L Glucose Calcium 8.2 L 8.1 L Phosphorus 2.2 L ALT Total Protein Albumin TSH Free T4 Laboratory Results - last 24 hr 06/01/16 06/01/16 06/01/16 07:59 10:19 16:11 Sodium 136 L Potassium 3.3 L Chloride 100.4 Carbon Dioxide 25 Anion Gap 14 BUN 5 L Creatinine 0.4 L Estimated GFR > 60 BUN/Creatinine Ratio 12.50 Glucose 89 POC Glucose 90 101 Calcium 8.2 L Phosphorus 3.4 D Magnesium 1.8 06/02/16 06/02/16 07:10 07:33 Sodium 136 L Potassium 3.7 Chloride 101.6 Carbon Dioxide 24 Anion Gap 14 BUN 6 L Creatinine 0.4 L Estimated GFR > 60 BUN/Creatinine Ratio 15.00 Glucose 81 POC Glucose 98 Calcium 8.1 L Phosphorus 3.1 Magnesium 1.9
[2016-06-02] MEDS: PRENATAL VITAMIN PO SCH (10:07)
--- NOTE | 2016-06-02 13:31 | Discharge Summary ---
Providers - Providers Date of Admission: 05/28/16 17:54 Date of discharge: 06/02/16 Attending physician: GENA CHAVEZ MD 05/28/16 21:00 Consult to Dietitian/Nutrition [CONS] Routine Physician Instructions: Reason For Exam: Reason for Consult: hyper grav Reason for Consult: 8 wks hyperemesis 05/29/16 13:24 Consult to Physician [CONS] Urgent Consulting Provider: GENA CHAVEZ Reason For Exam: nausea and vomiting Place consult to:: gastro Notified:: answering service 05/31/16 08:29 PICC Line Insertion [Consult to PICC Line RN] [CONS] Routine Reason For Exam: Persistent N/V, No solid intake x 1 month Type Line:: PICC 05/31/16 08:30 Consult to Dietitian/Nutrition [CONS] Routine Physician Instructions: Reason For Exam: Reason for Consult: Eval for TPN, no food x 1 mon, N/V 06/01/16 09:52 Consult to Case Management [CONS] Stat Services Needed at Discharge: Home Health Services Other Notified:: Willa Phone number called:: [phone] Was contact made?: Yes Time called:: 09:53 Additional Physician Instructions: Please arrange for patient to have home TPN @ discharge. 06/02/16 08:37 Consult to Case Management [CONS] Urgent Services Needed at Discharge: [facility] Notified:: case mgt Was contact made?: Yes Additional Physician Instructions: please let me know when patient can be discharged with picu and tpn at home. may be candidate to leave today pending set up Dr. Gena Chavez Primary care physician: [employer] Hospitalization Reason for admission: other (Nausea and vomiting ) Discharge diagnosis: other (cholethiasis, hyperemesis gravidarum, ) Condition at discharge: Good Disposition: DISCHARGED TO HOME OR SELFCARE Plan - Discharge Medications Prescriptions: Metoclopramide [Reglan] 10 mg PO TID #30 tab Nitrofurantoin [place]/M-Cryst [Macrobid CAP] 100 mg PO Q12HR #20 capsule Ondansetron [Zofran ODT TAB] 8 mg PO Q8HR #20 tab.rapdis Vit-Fe Fumar-FA [ Vitamin] 1 tab PO QDAY #60 tablet Promethazine [Phenergan TAB] 25 mg PO Q6HR PRN #30 tab PRN Reason: Nausea Scopolamine [Transderm-Scop] 1 each TD Q3D #10 patch - Provider Discharge Summary Activity: routine Diet: other (as instructed) Instructions: routine Additional instructions: [] Smoking cessation referral if applicable(refer to patient education folder for contact #) [] Refer to [facility] Booklet Call your doctor immediately for: * Fever > 100.5 * Heavy vaginal bleeding ( >1 pad per hour) * Severe persistent headache * Shortness of breath * Reddened, hot, painful area to leg or breast * Drainage or odor from incision. * Keep incision clean and dry at all times and follow doctor's instructions regarding bathing/showering - Follow up plan Follow up: Dr. Gena Chavez, your [facility] [Other] - 3-5 Days MONICA SCHMITT MD [Staff Physician] - 3-5 Days
[2016-06-02 13:54] VITALS: BP 105/64
== END 2016-06-02 17:13 | disposition home or self-care (01) | DRG 781 ==
LOC: ED 06:57 → OB 17:54
PROVIDERS: ADMIT Obstetrics & Gynecology; ATTEND Obstetrics & Gynecology
PROC: 02HV33Z Insertion of Infusion Device into Superior Vena Cava, Percutaneous Approach (ICD-10-PCS; principal; 2016-05-31)
DX: O21.1 Hyperemesis gravidarum with metabolic disturbance (principal); O99.611 Diseases of the digestive system complicating pregnancy, first trimester; K80.20 Calculus of gallbladder without cholecystitis without obstruction; Z3A.08 8 weeks gestation of pregnancy; Z83.3 Family history of diabetes mellitus; Z82.49 Family history of ischemic heart disease and other diseases of the circulatory system; Z82.3 Family history of stroke
CPT/HCPCS: 36415; 71010; 76705; 76801; 76817; 80048; 80053; 80074; 81001; 82010; 82962; 83690; 83735; 84100; 84132; 84439; 84443; 84703; 85025; 87086; 96374; 96375; 96376; J0696; J2405; J2765; J2930; J3480; J7030; J7121

== ENCOUNTER 2016-12-03 11:29 | Outpatient (CLI) | payer BC ==
[2016-12-03 12:24] VITALS: BP 97/50
== END 2016-12-03 13:08 | disposition home or self-care (01) ==
LOC: TRG 11:29
PROVIDERS: ATTEND Obstetrics & Gynecology
DX: O47.03 False labor before 37 completed weeks of gestation, third trimester (principal); Z3A.36 36 weeks gestation of pregnancy